=== PATIENT | female | born 1975 | race Two or more races ===

== ENCOUNTER 2025-04-29 17:38 | Emergency (ER) | payer SELFPAY ==
[~2025-04-29] VITALS: Ht 165.1 cm; Wt 113.6 kg
[2025-04-29 18:51] VITALS: BP 133/85; PULSE 109; RESP 16; TEMP 98.5; O2SAT 98
--- NOTE | 2025-04-29 18:59 | ECG ---
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
== END 2025-04-29 19:55 | disposition left against medical advice (07) ==
LOC: EDBD 17:38 → ER 17:57
DX: R55 Syncope and collapse (principal); Z53.21 Procedure and treatment not carried out due to patient leaving prior to being seen by health care provider
CPT/HCPCS: 82947; 93005